=== PATIENT | female | born 1960 | race Caucasian/White ===

== ENCOUNTER 2016-08-01 19:50 | Emergency (ER) | payer MEDICARE, BC, OTHER ==
[2016-08-01] MEDS ORDERED: NOREPINEPHRINE BITARTRATE 4 MG in DEXTROSE 5 % IN WATER 496 ML IV PRN ×2 (20:25)
[2016-08-01] MEDS ORDERED: GLUCAGON,HUMAN RECOMBINANT 1 MG VIAL ONE ×2 (20:50→20:53)
[2016-08-01] MEDS ORDERED: DEXTROSE 50%-WATER 50 ML SYRG ONE (20:53)
[2016-08-01] MEDS ORDERED: fentaNYL CITRATE/PF 50 MCG/ML AMPUL ONE (21:02)
[2016-08-01] MEDS ORDERED: LORazepam 2 MG/ML DISP.SYRIN ONE (21:06)
[2016-08-01 21:33] LABS: Hematocrit 39.3 % (37.0-47.0); Hemoglobin 12.1 gm/dL (12.5-16.0); Mean Cell Volume 94.2 fl (78-100); Mean Corpuscular Hgb Conc 30.8 g/dl (32-36); Neutrophil # 7.7 K/mm3 (1.3-6.0); Neutrophil % 66.9 % (42-75.0); Platelet Count 193 K/mm3 (150-450); Red Blood Count 4.17 M/mm3 (4.2-5.4); Red Cell Distribution Width 15.3 % (11.5-14.0); White Blood Count 11.5 K/mm3 (4.0-10.5)
[2016-08-01 21:46] LABS: Venous Blood Gas HCO3 21.7 mmol/L (22.0-29.0); Venous Blood Gas pH 7.23 (7.32-7.43)
--- NOTE | 2016-08-01 22:16 | ERNOTE ---
Chest Pain/Cardiac HPI Date of Service: 08/01/16 Time Seen by Provider: 08/01/16 20:16 Source: patient, family Immunizations: IMMUNIZATION HX Immunizations Up to Date Yes History of Influenza Vaccine Yes Hx Pneumococcal Vaccination Yes Allergies/Adverse Reactions: Allergies prednisone Allergy (Mild, Verified 05/05/16 15:02) Swelling of Face Sulfa (Sulfonamide Antibiotics) Allergy (Mild, Verified 05/05/16 15:02) Hives sulfadiazine [Sulfadiazine] Allergy (Mild, Verified 05/05/16 15:02) Hives erythromycin base Adverse Reaction (Mild, Verified 05/05/16 15:02) YEAST INFECTION gabapentin Adverse Reaction (Mild, Verified 05/05/16 15:02) pruritis levofloxacin [From Levaquin] Adverse Reaction (Mild, Verified 05/05/16 15:02) joint pain "knees seize up and can't bend them" Home Medications: HOME MEDICATIONS Hydroxychloroquine Sulfate [Plaquenil] 400 mg PO DAILY 03/06/13 [Last Taken 10/15] Oxycodone HCl 5 mg PO Q6H PRN 03/11/13 [Last Taken Unknown] LORazepam [Ativan] 0.5 mg PO BID PRN 11/02/13 [Last Taken Unknown] Ursodiol [Actigall] 600 mg PO BID 11/02/13 [Last Taken Unknown] Allopurinol [Zyloprim] 150 mg PO DAILY 09/01/14 [Last Taken Unknown] Azelastine HCl [Astepro Nasal Eccles] 1 spray NS BID PRN 09/01/14 [Last Taken Unknown] Levothyroxine Sodium [Levoxyl] 50 mcg PO DAILY 09/01/14 [Last Taken Unknown] Hydrocortisone 10 mg PO QPM 11/02/14 [Last Taken Unknown] Bupropion HCl [Wellbutrin Sr] 100 mg PO QAM 01/20/16 [Last Taken Unknown] Cholecalciferol [Vitamin D] 1,000 unit PO DAILY 01/20/16 [Last Taken Unknown] Diclofenac Sodium [Voltaren] 1 appl TP QID PRN 01/20/16 [Last Taken Unknown] Hydrocortisone 40 mg PO QAM 01/20/16 [Last Taken Unknown] Isosorbide Mononitrate [Imdur] 120 mg PO DAILY 01/20/16 [Last Taken Unknown] Levalbuterol HCl [Xopenex] 0.63 mg IH TID PRN 01/20/16 [Last Taken Unknown] Multivitamins with Iron 1 each PO DAILY 01/20/16 [Last Taken Unknown] Zolpidem Tartrate [Ambien] 5 mg PO HS PRN 01/20/16 [Last Taken Unknown] Carvedilol [Coreg] 6.25 mg PO BID #.1 tablet 05/06/16 [Last Taken Unknown] Furosemide [Lasix] 40 mg PO DAILY@1200 #.1 tablet 05/06/16 [Last Taken Unknown] Spironolactone [Aldactone] 12.5 mg PO DAILY@1200 #.1 tablet 05/06/16 [Last Taken Unknown] amLODIPine BESYLATE [Norvasc] 7.5 mg PO DAILY #.1 tablet 05/06/16 [Last Taken Unknown] Narrative: 56 Year old that had not been feeling well for a few weeks due to progressive generalized edema. A few weeks ago she was taken off of Coreg, but then accidentally took one tablet (12.5 mg). One hour after taking the tablet she began to get dizzy and weak, which became progressively worse until a syncopal episode occurred. On presentation to the ED she was restless, had mottled skin, a bradyarrythmia (20s to 40s). External pacemaker was used which captured. Dopamine and Levophophed were required to maintain the heart rate and blood pressure. Initially put on BIPAP while the family decided on the course of treatment. There was an inordinate delay in intubating the patient due to the families indecisiveness on whether to or not to intubate patient (this went on for about 10-15 minutes). After the patient was paced she requested to be intubated, in spite of the previous admonition to the family that she was a DNR. The heart rate did increase after the administration of Glucagon (total of 4 mg IV). Peripheral IVs were very difficult to establish due to morbid obesity. PMH: cardiomyopathy, Sepsis, renal failure, Lupus Date (Duration): 08/01/16 Timing: constant Severity/Quality: severe Location: substernal Chest Pain Radiation: no radiation Activities at Onset: other Modifying Factors - Improves: Present: other - none Modifying Factors - Worsens: Present: other - none Review of Systems - Narrative Narrative: Not done due to extremis. - Patient's Past Medical History Patient History - Medical: Cataracts, Obesity, Renal Disease Patient History - Cardiac/Respiratory: CHF, Hypertension, Other Patient History - Cancer: No Hx of Cancer Patient History - Surgical Procedures: Back Surgery, , Hysterectomy, T & A Patient History - Other: None - Family History Mother Family History - Medical: - 88CHF, DM, HTN Family History - Cardiac/Respiratory: CHF, Hypertension Father Family History - Medical: - 60, lung cancer Family History - Cardiac/Respiratory: Other Sister Family History - Medical: - 64-DM, CHF; CABG in the 40's; another sister 54- CA lung with mets to brain, SLE - Social History Living Situations: spouse - and 2 children, 1 ppd x 2 yrs at age of 18. Alcohol Use: occasionally Drug Use: none - Immunizations Immunizations Up to Date: Yes Hx Pneumococcal Vaccination: Yes History of Influenza Vaccine: Yes Physical Exam - Physical Exam Narrative: Morbidly obese General Appearance: Present: severe distress Eye Exam: Normal inspection: bilateral Ears, Nose, Throat: Present: normal ENT inspection, hearing grossly normal Neck: Present: normal inspection Respiratory: Present: respiratory distress, accessory muscle use Cardiovascular/Chest: Present: bradycardia Gastrointestinal/Abdominal: Present: soft, no organomegaly Back Exam: Present: normal inspection Extremity Exam: Present: normal inspection Neurological Exam: Present: other - GCS 13 Skin Exam: Present: pallor, other - mottled ED Progress - Results and Orders Patient's Lab Results:: I have reviewed the patient's lab results. - Vital Signs Patient's Vital Signs:: I have reviewed the patient's vital signs. - EKG EKG read: Interp. by me EKG Comments: sinus bradycardia, rate 36 - X-Ray X-Ray #1 X-Ray: chest Interpretation: Interp. by me X-ray Comments: The endotracheal tube was observed to be in the Right main stem bronchus and was backed out 2 cm. - Progress/Reassessment Progress:: Improved Progress Note-Subjective: 08/01/16 22:06 Dopamine has continued with normotensive. 08/01/16 22:[address] Galeano who accepted admission to the cardiac ICU at [facility]. Procedures Intubation Method: orotracheal Tube Size (cm): 7.0 Medications: Other - rocuronium 100 mg Breath Sounds after Intubation: right greater than left Intubation Complications: no complications Post Intubation Xray: Yes Complications: Pt spencer procedure well - 0 Departure - Departure Clinical Impression: Bradycardia with 31-40 beats per minute, Respiratory failure, Hyperkalemia, diminished renal excretion, Elevated troponin [facility] Condition: Critical Referrals: Sandra Baker, DATA CENTER ARCHITECT [Primary Care Provider] -
[2016-08-01 22:30] LABS: Urine Bilirubin Negative (NEGATIVE); Urine Blood 50 /ul (NEGATIVE); Urine Ketone Negative (NEGATIVE); Urine Nitrite Negative (NEGATIVE); Urine Protein 30 mg/dL (NEGATIVE); Urine Specific Gravity >=1.030 SP.GR. (1.005-1.010); Urine Urobilinogen Normal (NORMAL); Urine pH 5.5 pH (5.0-7.0)
[2016-08-01 22:35] LABS: Urine Appearance Slightly Cloudy; Urine Bacteria 1+; Urine Color Yellow; Urine Hyaline Cast 0-5 /LPF; Urine RBC 0-5 /hpf (0-5); Urine WBC None Seen /hpf (0-5)
[2016-08-01 22:36] LABS: Urine Amorphous Sediment Many - 3+ (NONE-FEW)
[2016-08-02 06:06] VITALS: BP 112/83
== END 2016-08-01 23:00 | disposition short-term general hospital (02) ==
LOC: ER 19:50
PROC: 0CHY7BZ Insertion of Airway into Mouth and Throat, Via Natural or Artificial Opening (ICD-10-PCS; principal; 2016-08-01)
DX: J96.90 Respiratory failure, unspecified, unspecified whether with hypoxia or hypercapnia (principal); R00.1 Bradycardia, unspecified; E87.5 Hyperkalemia; N19 Unspecified kidney failure; R78.89 Finding of other specified substances, not normally found in blood; Z87.891 Personal history of nicotine dependence

== ENCOUNTER 2017-02-09 23:41 | Emergency (ER) | payer MEDICARE, BC, OTHER ==
[2017-02-09] MEDS ORDERED: ONDANSETRON HCL/PF 2 MG/ML VIAL ONE (23:49)
[2017-02-09] MEDS ORDERED: ONDANSETRON HCL/PF 2 MG/ML VIAL IV ONE (23:52)
--- NOTE | 2017-02-10 00:07 | ERNOTE ---
Medical Problem HPI - General Chief Complaint: Nausea/Vomiting Time Seen by Provider: 02/09/17 23:49 Source: patient, family Exam Limitations: no limitations - Immun/Allergies/Home Medications Immunizations: IMMUNIZATION HX Immunizations Up to Date Yes History of Influenza Vaccine Yes Hx Pneumococcal Vaccination Yes Allergies/Adverse Reactions: Allergies prednisone Allergy (Mild, Verified 02/09/17 23:50) Swelling of Face Sulfa (Sulfonamide Antibiotics) Allergy (Mild, Verified 02/09/17 23:50) Hives sulfadiazine [Sulfadiazine] Allergy (Mild, Verified 02/09/17 23:50) Hives erythromycin base Adverse Reaction (Mild, Verified 02/09/17 23:50) YEAST INFECTION gabapentin Adverse Reaction (Mild, Verified 02/09/17 23:50) pruritis levofloxacin [From Levaquin] Adverse Reaction (Mild, Verified 02/09/17 23:50) joint pain "knees seize up and can't bend them" Home Medications: HOME MEDICATIONS Allopurinol [Zyloprim] 150 mg PO DAILY 02/09/17 [Last Taken Unknown] Azelastine HCl 2 spray NS QID 02/09/17 [Last Taken Unknown] Bupropion HCl [Wellbutrin Sr] 100 mg PO DAILY 02/09/17 [Last Taken Unknown] Calcium Carb, Citrate/Vit D3 [Calcium + D3 ER Tablet] 1 each PO BID 02/09/17 [ Last Taken Unknown] Cholecalciferol [Vitamin D] 1,000 unit PO DAILY 02/09/17 [Last Taken Unknown] Furosemide [Lasix] 80 mg PO TID 02/09/17 [Last Taken Unknown] Hydrocortisone 15 mg PO DAILY 02/09/17 [Last Taken Unknown] Hydroxychloroquine Sulfate 400 mg PO DAILY 02/09/17 [Last Taken Unknown] Isosorbide Mononitrate [Imdur] 120 mg PO DAILY 02/09/17 [Last Taken Unknown] LORazepam [Ativan] 0.5 mg PO BID PRN 02/09/17 [Last Taken Unknown] Levalbuterol HCl [Xopenex] 1.25 mg IH Q4H PRN 02/09/17 [Last Taken Unknown] Levothyroxine Sodium [Synthroid] 50 mcg PO DAILY 02/09/17 [Last Taken Unknown] Mometasone Furoate [Asmanex] 2 puff IH HS 02/09/17 [Last Taken Unknown] Multivitamin [One Daily Multivitamin] 1 each PO DAILY 02/09/17 [Last Taken Unknown] Oxycodone HCl 5 mg PO Q4H PRN 02/09/17 [Last Taken Unknown] Potassium Chloride [Klor-Con 10] 10 meq PO BID 02/09/17 [Last Taken Unknown] Spironolactone [Aldactone] 25 mg PO DAILY 02/09/17 [Last Taken Unknown] Ursodiol [Actigall] 600 mg PO BID 02/09/17 [Last Taken Unknown] Vitamin E 1,000 unit PO DAILY 02/09/17 [Last Taken Unknown] Zolpidem Tartrate 10 mg PO HS 02/09/17 [Last Taken Unknown] amLODIPine BESYLATE [Norvasc] 10 mg PO DAILY 02/09/17 [Last Taken Unknown] - History of Present History Narrative: Pt was having some palpitations today. Her home monitor told her that her pulse was 61 and she has been told that her pacemaker is set at 65 so she became concerned. She states that she could feel an extra beat every 7 beats. Timing: intermittent Severity: mild Review of Systems - Review of Systems Constitutional: Absent: recent illness EYE: Present: no symptoms reported ENT: Present: no symptoms reported Respiratory: Absent: shortness of breath Cardiology: Absent: chest pain Gastrointestinal/Abdominal: Present: nausea. Absent: vomiting Genitourinary: Present: no symptoms reported Musculoskeletal: Present: no symptoms reported Skin: Present: no symptoms reported Neurological: Present: anxiety Endocrine: Present: no symptoms reported - Patient's Past Medical History Patient History - Medical: Cataracts, Liver Disease, Obesity, Renal Disease Patient History - Cardiac/Respiratory: CHF, Hypertension, CPAP/BiPAP Home Use, Sleep Apnea, Other Patient History - Cancer: No Hx of Cancer Patient History - Surgical Procedures: Back Surgery, , Hysterectomy, Pacemaker, T & A Patient History - Other: None - Family History Mother Family History - Medical: Family History - Cardiac/Respiratory: CHF, Hypertension Father Family History - Medical: Family History - Cardiac/Respiratory: Other Sister Family History - Medical: - Social History Living Situations: home Abuse History: No History of abuse Psych History: No pertinent hx Smoking Status: Never smoker Alcohol Use: occasionally Drug Use: none - Immunizations Immunizations Up to Date: Yes Hx Pneumococcal Vaccination: Yes History of Influenza Vaccine: Yes Physical Exam - Physical Exam General Appearance: Present: wd/wn, alert, mild distress Head Exam: Present: normal inspection, no evidence of injury Eye Exam: Normal inspection: bilateral Neck: Present: normal inspection, nontender, supple Respiratory: Present: no respiratory distress, normal breath sounds, lungs clear Cardiovascular/Chest: Present: regular rate, rhythm, no murmur Gastrointestinal/Abdominal: Present: normal bowel sounds, nontender, nondistended, soft Extremity Exam: Present: normal inspection, normal range of motion, extremity edema - 1+ Neurological Exam: Present: alert, oriented, normal mood/affect Skin Exam: Present: other - multiple bruises on lower legs Lymphatic Exam: Present: no adenopathy ED Progress - Results and Orders Patient's Lab Results:: I have reviewed the patient's lab results. Results and Orders: Laboratory Tests 02/09/17 02/09/17 00:05 23:50 WBC 10.3 Hgb 13.7 Hct 41.5 Plt Count 162 Sodium 132 Potassium 3.9 Chloride 94 L Carbon Dioxide 27.2 Anion Gap 14.7 H BUN 41 H Creatinine 2.51 H Random Glucose 152 H Calcium 9.4 Total Bilirubin 0.4 AST 37 ALT 32 Alkaline Phosphatase 128 Troponin I 0.300 H* B-Natriuretic Peptide 3433 H Total Protein 7.0 Albumin 3.7 - Vital Signs Patient's Vital Signs:: I have reviewed the patient's vital signs. Vital Signs: Vital Signs 02/09/17 23:43 Temperature 36.6 C Pulse Rate 65 Respiratory 12 Rate Blood Pressure 183/75 O2 Sat by Pulse 97 Oximetry - EKG EKG: other EKG read: Interp. by me EKG Comments: Atrial pacemaker, R-BBB, Poss. anterior or inferior NE indeterminate age. - X-Ray X-Ray #1 X-Ray: chest Interpretation: Interp. by me X-ray Comments: No infiltrate or effusion. Pacemaker present in left chest. - Progress/Reassessment Chief Complaint: Nausea/Vomiting Progress Note-Subjective: 02/10/17 00:[address] Underwood at [facility] ED, she is willing to accept the patient in transfer. 02/10/17 01:35 [facility] here to transport patient Departure - Departure Clinical Impression: NSTEMI (non-ST elevated myocardial infarction) Disposition: [facility] Condition: Fair Referrals: Sandra Baker, DYE MIXER [Primary Care Provider] -
[2017-02-10 00:08] LABS: Hematocrit 41.5 % (37.0-47.0); Hemoglobin 13.7 gm/dL (12.5-16.0); Mean Cell Volume 87.7 fl (78-100); Mean Platelet Volume 10.1 fl (6.0-9.5); Neutrophil # 7.7 K/mm3 (1.3-6.0); Neutrophil % 74.4 % (42-75.0); Platelet Count 162 K/mm3 (150-450); Red Blood Count 4.73 M/mm3 (4.2-5.4); Red Cell Distribution Width 14.2 % (11.5-14.0); White Blood Count 10.3 K/mm3 (4.0-10.5)
[2017-02-10 00:30] LABS: Albumin * 3.7 gm/dl (3.4-5.0); Anion Gap 14.7 mmol/L (6.8-13.8); BUN/Creatinine Ratio 16.3 (9.0-21.6); Bilirubin, Total 0.4 mg/dL (0.0-1.1); Ca. Corrected For Albumin 9.3 mg/dL (8.4-10.2); Calcium * 9.4 mg/dL (7.9-10.9); Carbon Dioxide 27.2 mmol/L (24-32.6); Potassium 3.9 mmol/L (3.4-4.6)
[2017-02-10 00:35] LABS: Troponin I 0.3 ng/ml (0.00-0.10)
[2017-02-10 01:18] VITALS: BP 159/75
== END 2017-02-10 01:45 | disposition short-term general hospital (02) ==
LOC: ER 23:41
DX: I21.4 Non-ST elevation (NSTEMI) myocardial infarction (principal); I10 Essential (primary) hypertension; Z95.5 Presence of coronary angioplasty implant and graft
CPT/HCPCS: 36415; 71010; 80053; 83880; 84484; 85025; 93005; 96374; 99285; J2405

== ENCOUNTER 2017-03-02 07:27 | Day surgery (SDC) | payer MEDICARE, BC, OTHER ==
--- NOTE | 2017-03-02 08:00 | OR ---
Anesthesia Pre Procedure Eval Date of Service: 03/02/17 Pre Procedure Evaluation: Last Vital Signs Temp 36.8 C 03/02/17 07:36 Pulse 65 03/02/17 07:36 Resp 18 03/02/17 07:36 BP 156/73 03/02/17 07:36 Pulse Ox 97 03/02/17 07:36 Anesthesia Pre Procedure Evaluation DATE: 03/02/2017 TIME: INDICATIONS: Disc bulge low back and left radicular pain PAST MEDICAL HISTORY: Ms. Mackey has had a long history of back issues. She has had low back surgery on the L4 5 level and currently has a disc bulge at the L3 4 level which is associated with low back left hip pain and intermittent left radicular pain. This morning her pain is primarily in the back and hip with some foot pain. She is taken medications and had therapy in the past. She was also informed that the likelihood of further issues were great following her low back surgery. She has had epidural steroid injections in the past with good relief her most recent one being 2 years ago. She has had a very current pain as a nearly 1 year ago which has been increasing in frequency and intensity since the first of the year. History of GERD: No History of smoking: No History of sleep apnea: No EXAM: Heart regular; lungs clear ASSESSMENT OF MEDICAL STATUS: Ms Mackey is an appropriate candidate for epidural injection. I do note full bruising on the skin which she says she is prone to, however she is not on any anticoagulant. Also of note she is stage IV renal failure and minimal amounts of contrast is planned. PLANNED PROCEDURE: Epidural steroid injection lumbar. Home Medications: HOME MEDICATIONS Allopurinol [Zyloprim] 150 mg PO DAILY 02/09/17 [Last Taken Unknown] Azelastine HCl 2 spray NS BID 02/09/17 [Last Taken Unknown] Bupropion HCl [Wellbutrin Sr] 100 mg PO DAILY 02/09/17 [Last Taken Unknown] Cholecalciferol [Vitamin D] 1,000 unit PO Q7D 02/09/17 [Last Taken Unknown] Furosemide [Lasix] 80 mg PO BID 02/09/17 [Last Taken Unknown] Hydroxychloroquine Sulfate 200 mg PO BID 02/09/17 [Last Taken Unknown] Isosorbide Mononitrate [Imdur] 120 mg PO DAILY 02/09/17 [Last Taken Unknown] LORazepam [Ativan] 0.5 mg PO BID PRN 02/09/17 [Last Taken Unknown] Levalbuterol HCl [Xopenex] 1.25 mg IH Q4H PRN 02/09/17 [Last Taken Unknown] Mometasone Furoate [Asmanex] 2 puff IH HS 02/09/17 [Last Taken Unknown] Oxycodone HCl 5 - 10 mg PO Q4H PRN 02/09/17 [Last Taken Unknown] Spironolactone [Aldactone] 25 mg PO DAILY 02/09/17 [Last Taken Unknown] Ursodiol [Actigall] 600 mg PO BID 02/09/17 [Last Taken Unknown] Vitamin E 1,000 unit PO DAILY 02/09/17 [Last Taken Unknown] Zolpidem Tartrate 10 mg PO HS PRN 02/09/17 [Last Taken Unknown] Calcium Carbonate/Vitamin D3 [Calcium 600 + Vit D 200 Tablet] 1 each PO BID [Last Taken Unknown] Estradiol [Estrace Vaginal] 1 appl VG 2XW 03/01/17 [Last Taken Unknown] Fludrocortisone Acetate [Florinef] 0.1 mg PO DAILY 03/01/17 [Last Taken Unknown] Hydrocortisone [Cortef] 15 mg PO DAILY 03/01/17 [Last Taken Unknown] Levothyroxine Sodium [Synthroid] 75 mcg PO DAILY 03/01/17 [Last Taken Unknown] Lidocaine [Lidoderm 5%] 1 patch TP DAILY PRN 03/01/17 [Last Taken Unknown] Multivitamins [Multivitamin Hattie] 1 cap PO DAILY 03/01/17 [Last Taken Unknown] Nystatin/Triamcin [Nystatin-Triamcinolone Cream] 1 applic TP BID PRN 03/01/17 [ Last Taken Unknown] amLODIPine BESYLATE [Norvasc] 10 mg PO DAILY 03/01/17 [Last Taken Unknown] Potassium Chloride 20 meq PO BID 03/02/17 [Last Taken Unknown]
[2017-03-02] MEDS ORDERED: IOPAMIDOL 20 ML VIAL IJ ONE (08:12)
[2017-03-02] MEDS ORDERED: LIDOCAINE HCL/PF 5 ML VIAL IJ ONE (08:17)
[2017-03-02] MEDS ORDERED: DEXAMETHASONE SOD PHOSPHATE 10 MG/ML VIAL IJ ONE (08:17)
--- NOTE | 2017-03-02 08:26 | OR ---
Anesthesia Procedure Note - Anesthesia Procedure Note Date of Service: 03/02/17 Narrative: Vital Signs - Last Taken Temp 36.8 C 03/02/17 07:36 Pulse 65 03/02/17 07:36 Resp 18 03/02/17 07:36 BP 156/73 03/02/17 07:36 Pulse Ox 97 03/02/17 07:36 03/02/17 08:22 ANESTHESIA PROCEDURE NOTE Date of Procedure: 03/02/2017 Time of procedure: 8:08 AM. Performed by: Otis Callaway CRNA, [employer], MSN Orthopedic Tech: Mayra HEBERT. Preprocedure diagnosis: Disc bulge L3 4 with left radicular pain. Post procedure diagnosis: Same. Procedure: Epidural Steroid Injection L3 4. Indications: Low back and left radicular pain. Findings: See below. Details of the procedure: After the MRI report and films were reviewed, the patient was interviewed where risks and the procedure were explained. The patient was then brought to over #4 and was placed in the prone position. The back was prepped with DuraPrep and draped in a sterile fashion. The lumbar area was identified under fluoroscopy and the L3,4 space was localized with 1% lidocaine solution. The epidural space was identified using loss of resistance technique using a #20-gauge Touhy needle. 0.5 mL of Isovue was injected while the C-arm was positioned in the lateral orientation. The C-arm was then readjusted to an AP view and Isovue 200 0.5 milliliters was injected demonstrating a spread at the affected area. Dexamethasone 10mg and lidocaine 1 % 5 mL was injected, stylette was replaced and the epidural needle removed. A Band-Aid was then applied to the injection site, patient was placed in a supine position for 5 minutes then returned to ASU with good relief of pain, from a 4/ 10 to 0/10. EBL: None. Energy: 11.9 Seconds, 4.6 mGy Fluids: N/A. Specimen: N/A. Post procedure condition: The patient tolerated the procedure well. No complications were noted. Thank you for this consultation. Otis Callaway CRNA, MSN, [employer]
[2017-03-02 08:58] VITALS: BP 135/68
== END 2017-03-02 07:28 | disposition home or self-care (01) ==
LOC: AMB 07:27
PROVIDERS: ATTEND Nurse Practitioner
PROC: 3E0S3BZ Introduction of Anesthetic Agent into Epidural Space, Percutaneous Approach (ICD-10-PCS; 2017-03-02)
PROC: 3E0S33Z Introduction of Anti-inflammatory into Epidural Space, Percutaneous Approach (ICD-10-PCS; principal; 2017-03-02 08:00)
DX: M51.26 Other intervertebral disc displacement, lumbar region (principal); Z68.36 Body mass index [BMI] 36.0-36.9, adult

== ENCOUNTER 2017-04-08 12:45 | Emergency (ER) | payer MEDICARE, BC, OTHER ==
[2017-04-08] MEDS ORDERED: ONDANSETRON HCL/PF 2 MG/ML VIAL IV ONE (13:10)
[2017-04-08] MEDS ORDERED: ONDANSETRON HCL/PF 2 MG/ML VIAL ONE (13:13)
--- NOTE | 2017-04-08 13:14 | ERNOTE ---
Medical Problem HPI - Narrative Date of Service: 04/08/17 - General Chief Complaint: General Assessment Time Seen by Provider: 04/08/17 12:56 Source: patient Exam Limitations: no limitations - Immun/Allergies/Home Medications Immunizations: IMMUNIZATION HX Immunizations Up to Date Yes History of Influenza Vaccine Yes Hx Pneumococcal Vaccination Yes Allergies/Adverse Reactions: Allergies prednisone Allergy (Mild, Verified 04/08/17 13:02) Swelling of Face Sulfa (Sulfonamide Antibiotics) Allergy (Mild, Verified 04/08/17 13:02) Hives sulfadiazine [Sulfadiazine] Allergy (Mild, Verified 04/08/17 13:02) Hives erythromycin base Adverse Reaction (Mild, Verified 04/08/17 13:02) YEAST INFECTION gabapentin Adverse Reaction (Mild, Verified 04/08/17 13:02) pruritis levofloxacin [From Levaquin] Adverse Reaction (Mild, Verified 04/08/17 13:02) joint pain "knees seize up and can't bend them" Home Medications: HOME MEDICATIONS Allopurinol [Zyloprim] 300 mg PO DAILY 02/09/17 [Last Taken Unknown] Azelastine HCl 2 spray NS BID 02/09/17 [Last Taken Unknown] Bupropion HCl [Wellbutrin Sr] 100 mg PO BID 02/09/17 [Last Taken Unknown] Cholecalciferol [Vitamin D] 1,000 unit PO DAILY 02/09/17 [Last Taken Unknown] Furosemide [Lasix] 80 mg PO BID 02/09/17 [Last Taken Unknown] Hydroxychloroquine Sulfate 200 mg PO BID 02/09/17 [Last Taken Unknown] Isosorbide Mononitrate [Imdur] 120 mg PO DAILY 02/09/17 [Last Taken Unknown] LORazepam [Ativan] 0.5 mg PO BID PRN 02/09/17 [Last Taken Unknown] Levalbuterol HCl [Xopenex] 1.25 mg IH Q4H PRN 02/09/17 [Last Taken Unknown] Mometasone Furoate [Asmanex] 2 puff IH HS 02/09/17 [Last Taken Unknown] Oxycodone HCl 5 - 10 mg PO Q4H PRN 02/09/17 [Last Taken Unknown] Spironolactone [Aldactone] 50 mg PO DAILY 02/09/17 [Last Taken Unknown] Ursodiol [Actigall] 600 mg PO BID 02/09/17 [Last Taken Unknown] Vitamin E 1,000 unit PO DAILY 02/09/17 [Last Taken Unknown] Zolpidem Tartrate 10 mg PO HS PRN 02/09/17 [Last Taken Unknown] Calcium Carbonate/Vitamin D3 [Calcium 600 + Vit D 200 Tablet] 1 each PO BID [Last Taken Unknown] Estradiol [Estrace Vaginal] 1 appl VG 2XW 03/01/17 [Last Taken Unknown] Fludrocortisone Acetate [Florinef] 0.1 mg PO DAILY 03/01/17 [Last Taken Unknown] Hydrocortisone [Cortef] 15 mg PO DAILY 03/01/17 [Last Taken Unknown] Levothyroxine Sodium [Synthroid] 75 mcg PO DAILY 03/01/17 [Last Taken Unknown] Lidocaine [Lidoderm 5%] 1 patch TP DAILY PRN 03/01/17 [Last Taken Unknown] Multivitamins [Multivitamin Hattie] 1 cap PO DAILY 03/01/17 [Last Taken Unknown] Nystatin/Triamcin [Nystatin-Triamcinolone Cream] 1 applic TP BID PRN 03/01/17 [ Last Taken Unknown] amLODIPine BESYLATE [Norvasc] 10 mg PO DAILY 03/01/17 [Last Taken Unknown] Potassium Chloride 20 meq PO BID 03/02/17 [Last Taken Unknown] Mometasone Furoate [Asmanex] 440 mcg IH DAILY 04/08/17 [Last Taken Unknown] Ondansetron [Zofran Odt] 4 mg PO Q6H PRN #20 tab 04/08/17 [Last Taken Unknown] - History of Present History Narrative: Pt. comes in with c/o nausea, vomiting, malaise, fever, fatigue, dysuria, B ear pain, but denies any diarrhea, SOB, CP, recent illness or injury depite taking immitrol. Review of Systems - Review of Systems Constitutional: Present: fever, chills, weakness, fatigue, malaise, decreased activity level. Absent: recent illness EYE: Present: no symptoms reported ENT: Present: ear pain. Absent: ear discharge, nose pain, nose congestion, nasal drainage, sore throat, throat swelling Respiratory: Present: no symptoms reported. Absent: shortness of breath, cough , wheezing Cardiology: Present: no symptoms reported. Absent: chest pain, palpitations, edema Gastrointestinal/Abdominal: Present: nausea, vomiting. Absent: diarrhea, abdominal pain Genitourinary: Present: frequency, pain, dysuria. Absent: hematuria, decreased urinary output Musculoskeletal: Present: muscle pain - generalized Skin: Present: no symptoms reported Neurological: Present: headache, weakness - generalized. Absent: dizziness/ light-headedness, numbness, tingling Endocrine: Present: intolerance to heat, intolerance to cold. Absent: increased hunger, increased thirst, increased urine, unexplained weight gain, unexplained weight loss Hematologic/Lymphatic: Present: easy bruising, easy bleeding, swollen glands - Patient's Past Medical History Patient History - Medical: Cataracts, Liver Disease, Obesity, Renal Disease Patient History - Cardiac/Respiratory: CHF, Hypertension, CPAP/BiPAP Home Use, Sleep Apnea, Other Patient History - Cancer: No Hx of Cancer Patient History - Surgical Procedures: Back Surgery, , Hysterectomy, Pacemaker, T & A Patient History - Other: None - Family History Mother Family History - Medical: Family History - Cardiac/Respiratory: CHF, Hypertension Father Family History - Medical: Family History - Cardiac/Respiratory: Other Sister Family History - Medical: - Social History Living Situations: home Abuse History: No History of abuse Psych History: No pertinent hx Alcohol Use: occasionally Drug Use: none - Immunizations Immunizations Up to Date: Yes Hx Pneumococcal Vaccination: Yes History of Influenza Vaccine: Yes Physical Exam - Physical Exam General Appearance: Present: wd/wn, alert, no apparent distress Head Exam: Present: normal inspection, no evidence of injury Eye Exam: Normal inspection: bilateral, PERRL: bilateral, EOMI: bilateral Ears, Nose, Throat: Present: normal ENT inspection, normal pharynx. Absent: abnormal TM (R), abnormal TM (L), nasal congestion, sinus pain/drainage, pharyngeal erythema, pharyngeal swelling Neck: Present: normal inspection, nontender. Absent: lymphadenopathy (R), lymphadenopathy (L) Respiratory: Present: no respiratory distress, normal breath sounds, no accessory muscle use, chest nontender, lungs clear Cardiovascular/Chest: Present: regular rate, rhythm, no murmur, normal peripheral pulses Gastrointestinal/Abdominal: Present: normal bowel sounds, nontender, soft, hepatomegaly, other - obese Back Exam: Present: normal inspection, normal range of motion, no CVA tenderness , no vertebral tenderness Extremity Exam: Present: normal inspection, non-tender, normal range of motion, no edema Neurological Exam: Present: alert, oriented, normal mood/affect, no motor/ sensory deficits Skin Exam: Present: warm/dry, pallor ED Progress - Date and Time Seen: Date and Time: 04/08/17 14:52 Feel that this is likely viral gastroenteritis and will start pt. on zofran for nausea and have her follow up with PCP in 1-2 days. Discussed with Sandra Baker and she is in agreement with the plan. - Results and Orders Patient's Lab Results:: I have reviewed the patient's lab results. - Vital Signs Patient's Vital Signs:: I have reviewed the patient's vital signs. Vital Signs: Vital Signs 04/08/17 12:57 Temperature 37.0 C Pulse Rate 71 Respiratory 14 Rate Blood Pressure 182/74 O2 Sat by Pulse 94 Oximetry - Progress/Reassessment Chief Complaint: General Assessment Progress:: Improved Departure Clinical Impression: Gastroenteritis - Departure Disposition: Home self-care Condition: Good Instructions: Rehydration, Adult, Viral Gastroenteritis, Adult, [id number] Additional Instructions: Please follow up with primary provider in 2-3 days. Referrals: Sandra Baker, [employer] [Primary Care Provider] - Prescriptions: Ondansetron [Zofran Odt] 4 mg PO Q6H PRN #20 tab PRN Reason: Nausea
[2017-04-08] MEDS ORDERED: NORMAL SALINE 1,000 ML IV SCH (13:15)
[2017-04-08 13:31] LABS: Hematocrit 37.8 % (37.0-47.0); Hemoglobin 12.5 gm/dL (12.5-16.0); Mean Cell Volume 88.9 fl (78-100); Mean Corpuscular Hemoglobin 29.4 pg (27-31); Mean Corpuscular Hgb Conc 33.1 g/dl (32-36); Mean Platelet Volume 10.8 fl (6.0-9.5); Neutrophil # 9.5 K/mm3 (1.3-6.0); Neutrophil % 81.1 % (42-75.0); Platelet Count 138 K/mm3 (150-450); Red Blood Count 4.25 M/mm3 (4.2-5.4); Red Cell Distribution Width 14.1 % (11.5-14.0); White Blood Count 11.7 K/mm3 (4.0-10.5)
[2017-04-08 13:36] LABS: Urine Bilirubin Negative (NEGATIVE); Urine Blood Negative /ul (NEGATIVE); Urine Ketone Negative (NEGATIVE); Urine Nitrite Negative (NEGATIVE); Urine Protein Negative (NEGATIVE); Urine Urobilinogen Normal (NORMAL); Urine pH 6.5 pH (5.0-7.0)
[2017-04-08 13:48] LABS: Urine Appearance Clear; Urine Bacteria None Seen; Urine Color Yellow; Urine RBC None Seen /hpf (0-5); Urine WBC 0-5 /hpf (0-5)
[2017-04-08 13:58] LABS: Albumin * 3.7 gm/dl (3.4-5.0); Anion Gap 14.7 mmol/L (6.8-13.8); Bilirubin, Total 1.4 mg/dL (0.0-1.1); Calcium * 9.1 mg/dL (7.9-10.9); Carbon Dioxide 27.7 mmol/L (24-32.6); Potassium 3.4 mmol/L (3.4-4.6); Total Protein 7.1 gm/dL (6.2-8.2)
[2017-04-08 14:16] VITALS: BP 135/51
== END 2017-04-08 15:08 | disposition home or self-care (01) ==
LOC: ER 12:45
DX: K52.9 Noninfective gastroenteritis and colitis, unspecified (principal); I50.9 Heart failure, unspecified; I10 Essential (primary) hypertension; Z95.0 Presence of cardiac pacemaker
CPT/HCPCS: 36415; 80053; 81001; 82150; 83605; 83690; 84145; 85025; 87040; 87400; 96374; 99283; J2405

== ENCOUNTER 2017-05-29 17:13 | Emergency (ER) | payer MEDICARE, BC, OTHER ==
--- NOTE | 2017-05-29 17:34 | ERNOTE ---
CARDIAC HPI - Narrative Date of Service: 05/29/17 - General Time Seen by Provider: 05/29/17 17:15 Source: patient Exam Limitations: no limitations - Pain Score Pain Score #1 Pain Score: 0 - History of Present Illness Initial Comments: Pt. comes in with c/o BLE swelling and SOB for 12 hours. Pt. states that she is only SOB with activity and she slept all day yesterday and was very busy for the three days before getting ready for thanksgiving. Pt. denies any fevers, recent increase in sodium intake, NVD, headache, dizziness, recent illness or injury but does states that they decreased her lasix by "a pill" a month ago. Timing/Duration: 12 hours, getting worse Severity: moderate Location: other - none Activities at Onset: activity Modifying Factors - (Improves): Reports: rest Modifying Factors - (Worsens): Reports: movement Associated Symptoms: Present: malaise, shortness of breath, weakness. Absent: chest pain, cough, fever/chills, nausea, vomiting, seizure - Immun/Allergies/Home Medicatons Immunizations: IMMUNIZATION HX Immunizations Up to Date Yes History of Influenza Vaccine Yes Hx Pneumococcal Vaccination Yes Allergies/Adverse Reactions: Allergies Allergy/AdvReac Type Severity Reaction Status Date / Time prednisone Allergy Mild Swelling Verified 04/08/17 13:02 of Face Sulfa (Sulfonamide Allergy Mild Hives Verified 04/08/17 13:02 Antibiotics) sulfadiazine [Sulfadiazine] Allergy Mild Hives Verified 04/08/17 13:02 erythromycin base AdvReac Mild YEAST Verified 04/08/17 13:02 INFECTION gabapentin AdvReac Mild pruritis Verified 04/08/17 13:02 levofloxacin [From Levaquin] AdvReac Mild joint pain Verified 04/08/17 13:02 Home Medications: Ambulatory Orders Medication Instructions Recorded Allopurinol [Zyloprim] 300 mg PO DAILY 02/09/17 Azelastine HCl 2 spray NS BID 02/09/17 Bupropion HCl [Wellbutrin Sr] 100 mg PO BID 02/09/17 Cholecalciferol [Vitamin D] 1,000 unit PO DAILY 02/09/17 Furosemide [Lasix] 80 mg PO BID 02/09/17 Hydroxychloroquine Sulfate 400 mg PO DAILY 02/09/17 Isosorbide Mononitrate [Imdur] 120 mg PO DAILY 02/09/17 LORazepam [Ativan] 0.5 mg PO BID PRN 02/09/17 Levalbuterol HCl [Xopenex] 1.25 mg IH Q4H PRN 02/09/17 Mometasone Furoate [Asmanex] 2 puff IH HS 02/09/17 Oxycodone HCl 5 - 10 mg PO Q4H PRN 02/09/17 Spironolactone [Aldactone] 50 mg PO BID 02/09/17 Ursodiol [Actigall] 600 mg PO BID 02/09/17 Vitamin E 1,000 unit PO DAILY 02/09/17 Zolpidem Tartrate 10 mg PO HS PRN 02/09/17 Calcium Carbonate/Vitamin D3 1 each PO BID 03/01/17 [Calcium 600 + Vit D 200 Tablet] Estradiol [Estrace Vaginal] 1 appl VG 2XW 03/01/17 Fludrocortisone Acetate [Florinef] 0.1 mg PO DAILY 03/01/17 Hydrocortisone [Cortef] 15 mg PO DAILY 03/01/17 Levothyroxine Sodium [Synthroid] 75 mcg PO DAILY 03/01/17 Lidocaine [Lidoderm 5%] 1 patch TP DAILY PRN 03/01/17 Multivitamins [Multivitamin Hattie] 1 cap PO DAILY 03/01/17 Nystatin/Triamcin 1 applic TP BID PRN 03/01/17 [Nystatin-Triamcinolone Cream] amLODIPine BESYLATE [Norvasc] 10 mg PO DAILY 03/01/17 Potassium Chloride 20 meq PO BID 03/02/17 Mometasone Furoate [Asmanex] 440 mcg IH DAILY 04/08/17 Review of Systems - Review of Systems Constitutional: Present: fatigue EENTM: Present: no symptoms reported Respiratory: Present: short of breath. Absent: cough, orthopnea, wheezing Cardiology: Present: edema. Absent: chest pain, palpitations, syncope Gastrointestinal/Abdominal: Present: no symptoms reported. Absent: abdominal pain, diarrhea, nausea, vomiting Genitourinary: Present: no symptoms reported. Absent: dysuria, frequency, hematuria Musculoskeletal: Present: no symptoms reported. Absent: back pain, neck pain Skin: Present: no symptoms reported. Absent: change in color, lesions, lumps, rash Neurological: Present: no symptoms reported. Absent: dizziness/light-headness, headache, numbness Endocrine: Present: no symptoms reported All Other Systems: All systems neg except as marked - Patient's Past Medical History Patient History - Medical: Cataracts, Liver Disease, Obesity, Renal Disease Patient History - Cardiac/Respiratory: CHF, Hypertension, CPAP/BiPAP Home Use, Sleep Apnea, Other Patient History - Cancer: No Hx of Cancer Patient History - Surgical Procedures: Back Surgery, , Hysterectomy, Pacemaker, T & A Patient History - Other: None - Family History Mother Family History - Medical: Family History - Cardiac/Respiratory: CHF, Hypertension Father Family History - Medical: Family History - Cardiac/Respiratory: Other Sister Family History - Medical: - Social History Abuse History: No History of abuse Psych History: No pertinent hx - Immunizations Immunizations Up to Date: Yes Hx Pneumococcal Vaccination: Yes History of Influenza Vaccine: Yes CP Exam - Physical Exam General Appearance: Present: WD/WN, no apparent distress, alert Eyes, Ears, Nose, Throat Exam: Present: normal ENT inspection, TMs normal, pharynx normal Neck: Present: non-tender, full range of motion, supple, normal inspection. Absent: lymphadenopathy (R), lymphadenopathy (L) Respiratory: Present: chest non-tender, lungs clear, normal breath sounds, no respiratory distress, no accessory muscle use. Absent: crackles, rales, rhonchi , wheezing Cardiovascular/Chest: Present: normal peripheral pulses, regular rate, rhythm, no chest tenderness, no gallop, no murmur Gastrointestinal/Abdominal: Present: normal bowel sounds, non tender Extremity: Present: normal range of motion, non-tender, normal inspection, no calf tenderness, lower extremity edema - +4 pitting BLE. Absent: calf tenderness Neurologic: Present: health services rn II-XII nml as tested, normal cerebellar test, no motor/ sensory deficits, alert, normal mood/affect, oriented x 3 Skin Exam: Present: normal color, warm/dry, no cyanosis ED Progress - Date and Time Seen: Date and Time: 05/29/17 18:[address] Bauer and he recommends transferring pt. called to Dr Tinsley at [facility] and she will call back as she is not sure if they can take pt with acute liver failure. 05/29/17 18:57 Dr Tinsley calls back to accept transfer of pt. - PROGRESS/REASSESSMENT Condition: Unchanged - VITAL SIGNS Patient's Vital Signs:: I have reviewed the patient's vital signs. - RESULTS AND ORDERS Patient's Lab Results:: I have reviewed the patient's lab results. Results and Orders: 05/29/17 19:00 Abnormal Lab Results 05/29/17 05/29/17 05/29/17 Range/Units 17:32 17:32 18:10 WBC 12.1 H (4.0-10.5) K/mm3 RBC 4.11 L (4.2-5.4) M/mm3 Hgb 11.5 L (12.5-16.0) gm/dL Hct 34.1 L (37.0-47.0) % RDW 14.5 H (11.5-14.0) % MPV 10.6 H (6.0-9.5) fl Immature Gran % (Auto) 0.50 H (0.001-0.429) % Immature Gran # (Auto) 0.06 H (0.000-0.0310) K/mm3 Neutrophils % 89.0 H (42-75.0) % Lymphocytes % 1.9 L (20-51) % Neutrophils # 10.7 H (1.3-6.0) K/mm3 Lymphocytes # 0.2 L (1.5-3.5) k/mm3 PT (9.0-11.0) Seconds INR (Anticoag Therapy) (0.90-1.10) INR Sodium 124 L (132-142) mmol/L Plasma Sodium 125 L (130-142) mmol/L Potassium 6.1 H D (3.4-4.6) mmol/L Chloride 89 L (97-106) mmol/L Carbon Dioxide 23.9 L (24-32.6) mmol/L Anion Gap 17.2 H (6.8-13.8) mmol/L BUN 97 H D (3-23) mg/dL Creatinine 4.68 H D (0.4-1.4) mg/dL Est GFR (Non-Af Amer) 10 L D (60-130) mL/min Random Glucose 138 H (70-110) mg/dL AST 150 H (0-48) U/L ALT 220 H (19-67) U/L Troponin I 0.483 H* (0.00-0.10) ng/ml B-Natriuretic Peptide 16061 H (5-205) pg/mL Urine Blood 10 H (NEGATIVE) /ul 05/29/17 Range/Units 18:15 WBC (4.0-10.5) K/mm3 RBC (4.2-5.4) M/mm3 Hgb (12.5-16.0) gm/dL Hct (37.0-47.0) % RDW (11.5-14.0) % MPV (6.0-9.5) fl Immature Gran % (Auto) (0.001-0.429) % Immature Gran # (Auto) (0.000-0.0310) K/mm3 Neutrophils % (42-75.0) % Lymphocytes % (20-51) % Neutrophils # (1.3-6.0) K/mm3 Lymphocytes # (1.5-3.5) k/mm3 PT 12.7 H (9.0-11.0) Seconds INR (Anticoag Therapy) 1.27 H (0.90-1.10) INR Sodium (132-142) mmol/L Plasma Sodium (130-142) mmol/L Potassium (3.4-4.6) mmol/L Chloride (97-106) mmol/L Carbon Dioxide (24-32.6) mmol/L Anion Gap (6.8-13.8) mmol/L BUN (3-23) mg/dL Creatinine (0.4-1.4) mg/dL Est GFR (Non-Af Amer) (60-130) mL/min Random Glucose (70-110) mg/dL AST (0-48) U/L ALT (19-67) U/L Troponin I (0.00-0.10) ng/ml B-Natriuretic Peptide (5-205) pg/mL Urine Blood (NEGATIVE) /ul - EKG EKG #1 EKG: other - AV paced EKG Read: Reviewed by me EKG Comments: interp by Dr Matute - X-Ray X-Ray #1 XRAY: chest X-Ray Interpretation: Reviewed by me X-Ray Comments: pulmonary vascular congestion pulmonary edema centrally. Departure - Departure Clinical Impression: Acute renal failure syndrome, Hyperkalemia, diminished renal excretion CHF (congestive heart failure) Qualifiers: Congestive heart failure type: unspecified congestive heart failure type Congestive heart failure chronicity: acute on chronic Qualified Code(s): I50.9 - Heart failure, unspecified Chronic liver failure Qualifiers: Hepatic coma status: without hepatic coma Qualified Code(s): K72.10 - Chronic hepatic failure without coma Disposition: [facility] Condition: Serious
[2017-05-29 17:37] LABS: Hematocrit 34.1 % (37.0-47.0); Hemoglobin 11.5 gm/dL (12.5-16.0); Mean Corpuscular Hgb Conc 33.7 g/dl (32-36); Mean Platelet Volume 10.6 fl (6.0-9.5); Neutrophil # 10.7 K/mm3 (1.3-6.0); Platelet Count 174 K/mm3 (150-450); Red Blood Count 4.11 M/mm3 (4.2-5.4); Red Cell Distribution Width 14.5 % (11.5-14.0); White Blood Count 12.1 K/mm3 (4.0-10.5)
[2017-05-29 17:58] LABS: Albumin * 4.3 gm/dl (3.4-5.0); Anion Gap 17.2 mmol/L (6.8-13.8); BUN/Creatinine Ratio 20.7 (9.0-21.6); Bilirubin, Total 0.9 mg/dL (0.0-1.1); Ca. Corrected For Albumin 8.9 mg/dL (8.4-10.2); Calcium * 9.5 mg/dL (7.9-10.9); Carbon Dioxide 23.9 mmol/L (24-32.6); Potassium 6.1 mmol/L (3.4-4.6); Total Protein 7.1 gm/dL (6.2-8.2)
[2017-05-29 17:59] LABS: Troponin I 0.483 ng/ml (0.00-0.10)
[2017-05-29 18:28] LABS: Urine Appearance Clear; Urine Bacteria None Seen; Urine Bilirubin Negative (NEGATIVE); Urine Blood 10 /ul (NEGATIVE); Urine Color Yellow; Urine Ketone Negative (NEGATIVE); Urine Nitrite Negative (NEGATIVE); Urine Protein Negative (NEGATIVE); Urine RBC 0-5 /hpf (0-5); Urine Urobilinogen Normal (NORMAL); Urine WBC 0-5 /hpf (0-5); Urine pH 5.5 pH (5.0-7.0)
[2017-05-29] MEDS ORDERED: DEXTROSE 50%-WATER 50 ML SYRG IV ONE (18:37)
[2017-05-29] MEDS ORDERED: INSULIN REGULAR, HUMAN 100 UNITS/ML VIAL IV ONE (18:43)
[2017-05-29] MEDS ORDERED: INSULIN REGULAR, HUMAN 100 UNITS/ML VIAL ONE (18:56)
[2017-05-29] MEDS ORDERED: DEXTROSE 50%-WATER 50 ML SYRG ONE (18:56)
[2017-05-29 18:58] LABS: Prothrombin Time (Patient) 12.7 Seconds (9.0-11.0)
[2017-05-29 18:59] LABS: INR 1.27 INR (0.90-1.10)
[2017-05-29 19:29] VITALS: BP 137/60
== END 2017-05-29 19:35 | disposition short-term general hospital (02) ==
LOC: ER 17:13
DX: I50.9 Heart failure, unspecified (principal); K72.10 Chronic hepatic failure without coma; N17.9 Acute kidney failure, unspecified; E87.5 Hyperkalemia; Z95.0 Presence of cardiac pacemaker; I10 Essential (primary) hypertension